=== PATIENT | female | born 1990 | race Caucasian/White ===

== ENCOUNTER 2023-01-13 12:39 | Emergency (ER) | payer MEDICAID ==
[~2023-01-13] VITALS: Ht 162.6 cm; Wt 63.5 kg
[~2023-01-13 12:39] MED LIST: NAPR-686 PO; PHE25 PO
[2023-01-13 12:40] VITALS: BP_SYST 132
[2023-01-13] MEDS ORDERED: NACL 0.9% 1,000 ML IV ONE (13:30)
[2023-01-13] MEDS ORDERED: ONDANSETRON HCL 4 MG/2 ML VIAL IVP ONE (13:30)
[2023-01-13] MEDS ORDERED: KETOROLAC TROMETHAMINE 15 MG VIAL IVP ONE (13:30)
[2023-01-13 13:33] LABS: BILIRUBIN,URINE NEGATIVE (NEGATIVE); BLOOD, URINE NEGATIVE (NEGATIVE); CLARITY/URINE SL CLOUDY (CLEAR); COLOR,URINE YELLOW (YELLOW); GLUCOSE,URINE NEGATIVE (NEGATIVE); KETONES,URINE NEGATIVE (NEGATIVE); LEUKOCYTE ESTERASE ,URINE NEGATIVE (NEGATIVE); NITRITE, URINE POSITIVE (NEGATIVE); PH,URINE 6.5 (5.0-8.0); PROTEIN URINE NEGATIVE (NEGATIVE); UROBILINOGEN,URINE 0.2 (0.2-1.0)
[2023-01-13 13:42] LABS: BACTERIA,URINE MANY /HPF (None Seen); MUCUS,URINE None Seen /LPF (None Seen); RBC,URINE NONE SEEN /HPF (0-3)
[2023-01-13 13:58] LABS: BASOPHILS # (AUTO) 0.1 K/uL (0.0-0.2); EOSINOPHILS # (AUTO) 0.4 K/uL (0.0-0.4); EOSINOPHILS % (AUTO) 5.4 % (0.0-4.0); HEMATOCRIT 36.6 % (36-48); HEMOGLOBIN 12.5 g/dL (12.0-16.0); LYMPHOCYTES # (AUTO) 2.7 K/uL (1.0-5.5); LYMPHOCYTES % (AUTO) 41.2 % (20.5-51.5); MEAN CORPUSCULAR HEMOGLOBIN 34 pg (27-31); MEAN CORPUSCULAR HGB CONC 34 % (32-36); MEAN CORPUSCULAR VOLUME 100 fL (79.0-98.0); MONOCYTES # (AUTO) 0.4 K/uL (0.0-1.0); MONOCYTES % (AUTO) 5.5 % (1.7-9.3); NEUTROPHILS # (AUTO) 3.1 K/uL (1.8-7.7); NEUTROPHILS % (AUTO) 46.9 % (40.0-70.0); PLATELET COUNT (AUTO) 273 K/uL (130-430); RED BLOOD CELL COUNT(AUTO) 3.66 MIL/uL (4.2-6.2); RED CELL DISTRIBUTION WIDTH 13.2 % (9.0-15.0); WHITE BLOOD COUNT (AUTO) 6.5 K/uL (4.8-10.8)
[2023-01-13 14:12] LABS: CALCIUM 8.2 mg/dL (8.4-11.0); CREATININE 0.89 mg/dL (0.55-1.30)
[2023-01-13] MEDS ORDERED: MORPHINE 4 MG INJ. 4 MG/ML VIAL IVP ONE (14:15)
[2023-01-13 14:17] LABS: ALBUMIN 3.4 g/dL (3.4-4.8); TOTAL BILIRUBIN 0.5 mg/dL (0.0-1.0)
[2023-01-13] MEDS ORDERED: LIDOCAINE PATCH 5% 1 EA TP ONE (14:30)
[2023-01-13] MEDS ORDERED: BACLOFEN 10 MG TABLET PO ONE (14:30)
[2023-01-13] MEDS ORDERED: DIPHENHYDRAMINE INJ 50 MG/ML VIAL IVP ONE (14:30)
[2023-01-13] MEDS ORDERED: DICL20GE TP (16:35)
[2023-01-13] MEDS ORDERED: LIDO-19 TP (16:35)
[2023-01-13] MEDS ORDERED: BACL10TA PO (16:35)
[2023-01-13] MEDS ORDERED: ACET-2634 PO (16:35)
[2023-01-13] MEDS ORDERED: OXYC-128 PO (16:36)
[2023-01-13 17:16] VITALS: BP_SYST 132
== END 2023-01-13 17:17 | disposition home or self-care (01) ==
LOC: SED 12:39
DX: S39.012A Strain of muscle, fascia and tendon of lower back, initial encounter (principal); J45.909 Unspecified asthma, uncomplicated; Z88.1 Allergy status to other antibiotic agents; Z91.041 Radiographic dye allergy status; Z79.899 Other long term (current) drug therapy; X58.XXXA Exposure to other specified factors, initial encounter; Y93.89 Activity, other specified; Y92.89 Other specified places as the place of occurrence of the external cause; Y99.8 Other external cause status
CPT/HCPCS: 99284; 96374; 96375; 96361; 80053; 81000; 85025; 87040; 87086; 36415; 81025; 83605; J1200; J1885; J2405; J2270; J7030

== ENCOUNTER 2023-06-19 13:33 | Emergency (ER) | payer MEDICAID ==
[~2023-06-19] VITALS: Ht 162.6 cm; Wt 77.1 kg
[~2023-06-19 13:33] MED LIST changes: +ACET-2634 PO; +BACL10TA PO; +DICL20GE TP; +LIDO-19 TP; +OXYC-128 PO
[2023-06-19 13:36] VITALS: BP_SYST 138; PULSE 90; RESP 22; TEMP 98.3; O2SAT 98
[2023-06-19] MEDS ORDERED: IPRATROPIUM/ALBUTEROL SULFATE 3 ML AMPUL.NEB (DUONEB) INH ONE (13:45)
[2023-06-19 14:14] LABS: INFLUENZA TYPE A Positive (NEGATIVE); INFLUENZA TYPE B NEGATIVE (NEGATIVE)
[2023-06-19] MEDS ORDERED: KETOROLAC TROMETHAMINE 30 MG VIAL IVP ONE (14:15)
[2023-06-19] MEDS ORDERED: NACL 0.9% 1,000 ML IV ONE (14:15)
[2023-06-19] MEDS ORDERED: DEXAMETHASONE SOD PHOSPHATE 10 MG/ML VIAL IVP ONE (14:15)
[2023-06-19] MEDS ORDERED: ONDANSETRON HCL 4 MG/2 ML VIAL IVP ONE (14:15)
[2023-06-19 14:27] LABS: BASOPHILS % (AUTO) 0.5 % (0.0-2.0); EOSINOPHILS # (AUTO) 0.2 K/uL (0.0-0.4); EOSINOPHILS % (AUTO) 2.1 % (0.0-4.0); HEMOGLOBIN 13.8 g/dL (12.0-16.0); LYMPHOCYTES # (AUTO) 2.7 K/uL (1.0-5.5); MEAN CORPUSCULAR HEMOGLOBIN 33 pg (27-31); MEAN CORPUSCULAR HGB CONC 34 % (32-36); MEAN CORPUSCULAR VOLUME 99 fL (79.0-98.0); MONOCYTES # (AUTO) 0.5 K/uL (0.0-1.0); MONOCYTES % (AUTO) 5.8 % (1.7-9.3); NEUTROPHILS # (AUTO) 4.4 K/uL (1.8-7.7); NEUTROPHILS % (AUTO) 56.6 % (40.0-70.0); PLATELET COUNT (AUTO) 265 K/uL (130-430); RED BLOOD CELL COUNT(AUTO) 4.14 MIL/uL (4.2-6.2); RED CELL DISTRIBUTION WIDTH 12.4 % (9.0-15.0); WHITE BLOOD COUNT (AUTO) 7.8 K/uL (4.8-10.8)
[2023-06-19 14:42] LABS: ANION GAP 8 (5-15); CALCIUM 9.2 mg/dL (8.4-11.0); CARBON DIOXIDE 25 mmol/L (23-29); CHLORIDE 101 mmol/L (98-107); CREATININE 0.89 mg/dL (0.55-1.30); GFR AFRICAN AMERICAN 93 mL/min (>90); GLUCOSE 100 mg/dL (74-106); POTASSIUM 4.3 mmol/L (3.5-5.1); SODIUM SERUM 134 mmol/L (136-145); UREA NITROGEN, BLOOD 7 mg/dL (8-21)
[2023-06-19] MEDS ORDERED: OSELTAMIVIR PHOSPHATE 75 MG CAPSULE PO ONE (14:45)
[2023-06-19 14:46] LABS: GFR NON AFRICAN-AMERICAN 77 mL/min (>90)
[2023-06-19 14:48] LABS: ALANINE AMINOTRANSFERASE 23 U/L (12-78); ALBUMIN 3.8 g/dL (3.4-4.8); ASPARTATE AMINOTRANSFERASE 14 U/L (10-37); TOTAL BILIRUBIN 0.5 mg/dL (0.0-1.0); TOTAL PROTEIN, SERUM 7.3 g/dL (6.4-8.3)
[2023-06-19 14:53] LABS: SERUM HCG (QUALITATIVE) NEGATIVE (NEGATIVE)
[2023-06-19] MEDS ORDERED: DIPHENHYDRAMINE INJ 50 MG/ML VIAL ONE (15:42)
[2023-06-19] MEDS ORDERED: DIPHENHYDRAMINE INJ 50 MG/ML VIAL IVP ONE (16:00)
[2023-06-19] MEDS ORDERED: ACET325T53 PO (17:55)
[2023-06-19] MEDS ORDERED: OSEL75CA PO (17:55)
[2023-06-19] MEDS ORDERED: METO-290 PO (17:55)
[2023-06-19] MEDS ORDERED: ALBU90AE INH (18:22)
[2023-06-19 18:45] VITALS: BP_SYST 125; PULSE 107; RESP 26; TEMP 98.7; O2SAT 98
== END 2023-06-19 18:45 | disposition home or self-care (01) ==
LOC: SED 13:33
DX: J10.1 Influenza due to other identified influenza virus with other respiratory manifestations (principal); B34.9 Viral infection, unspecified; R55 Syncope and collapse; R53.1 Weakness; R11.10 Vomiting, unspecified; M79.10 Myalgia, unspecified site; J45.909 Unspecified asthma, uncomplicated; Z88.1 Allergy status to other antibiotic agents; Z91.041 Radiographic dye allergy status; Z79.899 Other long term (current) drug therapy; Z20.822 Contact with and (suspected) exposure to COVID-19
CPT/HCPCS: 80053; 84703; 83880; 85025; 84484; 36415; 71045; 70450; 76376; 94640; 99285; 96361; 96374; 96375; 81025; 87804 ×2; 87426; G9035; J1100; J1200; J1885; J2405; J7030

== ENCOUNTER 2023-06-21 11:14 | Emergency (ER) | payer MEDICAID ==
[~2023-06-21] VITALS: Ht 162.6 cm; Wt 77.1 kg
[~2023-06-21 11:14] MED LIST changes: +ACET325T53 PO; +ALBU90AE INH; +METO-290 PO; +OSEL75CA PO
[2023-06-21 11:19] VITALS: BP_SYST 131; PULSE 96; RESP 22; TEMP 98.2; O2SAT 100
[2023-06-21] MEDS ORDERED: methylPREDNISolone SOD SUCC/PF 62.5 MG/ML VIAL IVP ONE (11:30)
[2023-06-21] MEDS ORDERED: NACL 0.9% 1,000 ML IV ONE (11:30)
[2023-06-21] MEDS ORDERED: IPRATROPIUM BROM 0.5 MG/2.5 ML VIAL.NEB (ATROVENT) INH ONE (11:30)
[2023-06-21] MEDS ORDERED: ALBUTEROL SULFATE 0.083% 2.5 MG/3 ML VIAL.NEB INH ONE (11:30)
[2023-06-21 11:56] LABS: BASOPHILS % (AUTO) 0.5 % (0.0-2.0); EOSINOPHILS # (AUTO) 0.1 K/uL (0.0-0.4); EOSINOPHILS % (AUTO) 1.4 % (0.0-4.0); HEMATOCRIT 39.2 % (36-48); HEMOGLOBIN 13.1 g/dL (12.0-16.0); LYMPHOCYTES # (AUTO) 3.8 K/uL (1.0-5.5); LYMPHOCYTES % (AUTO) 49.3 % (20.5-51.5); MEAN CORPUSCULAR HEMOGLOBIN 33 pg (27-31); MEAN CORPUSCULAR HGB CONC 34 % (32-36); MEAN CORPUSCULAR VOLUME 100 fL (79.0-98.0); MONOCYTES # (AUTO) 0.4 K/uL (0.0-1.0); MONOCYTES % (AUTO) 5.1 % (1.7-9.3); NEUTROPHILS # (AUTO) 3.4 K/uL (1.8-7.7); NEUTROPHILS % (AUTO) 43.7 % (40.0-70.0); PLATELET COUNT (AUTO) 250 K/uL (130-430); RED BLOOD CELL COUNT(AUTO) 3.93 MIL/uL (4.2-6.2); RED CELL DISTRIBUTION WIDTH 12.6 % (9.0-15.0); WHITE BLOOD COUNT (AUTO) 7.7 K/uL (4.8-10.8)
[2023-06-21 12:12] LABS: BILIRUBIN,URINE NEGATIVE (NEGATIVE); BLOOD, URINE NEGATIVE (NEGATIVE); CLARITY/URINE SLIGHTLY CLOUDY (CLEAR); COLOR,URINE YELLOW (YELLOW); GLUCOSE,URINE NEGATIVE (NEGATIVE); KETONES,URINE NEGATIVE (NEGATIVE); LEUKOCYTE ESTERASE ,URINE TRACE (NEGATIVE); NITRITE, URINE POSITIVE (NEGATIVE); PROTEIN URINE NEGATIVE (NEGATIVE); UROBILINOGEN,URINE 0.2 (0.2-1.0)
[2023-06-21 12:12] LABS: CALCIUM 8.7 mg/dL (8.4-11.0); CREATININE 0.99 mg/dL (0.55-1.30); POTASSIUM 3.4 mmol/L (3.5-5.1)
[2023-06-21 12:16] LABS: ALBUMIN 3.3 g/dL (3.4-4.8); TOTAL BILIRUBIN 0.3 mg/dL (0.0-1.0); TOTAL PROTEIN, SERUM 6.7 g/dL (6.4-8.3)
[2023-06-21 12:29] LABS: RBC,URINE 0-3 /HPF (0-3)
[2023-06-21 12:30] LABS: BACTERIA,URINE MANY /HPF (None Seen)
[2023-06-21] MEDS ORDERED: DIPHENHYDRAMINE INJ 50 MG/ML VIAL IVP ONE (12:30)
[2023-06-21] MEDS ORDERED: LEVO750T64 PO (13:16)
[2023-06-21] MEDS ORDERED: FEXO-43 PO (13:20)
[2023-06-21 13:33] VITALS: BP_SYST 131; PULSE 96; RESP 22; TEMP 98.2; O2SAT 100
== END 2023-06-21 13:33 | disposition home or self-care (01) ==
LOC: SED 11:14
DX: J10.1 Influenza due to other identified influenza virus with other respiratory manifestations (principal); J20.9 Acute bronchitis, unspecified; R05.9 Cough, unspecified; R50.9 Fever, unspecified; R11.0 Nausea; J45.909 Unspecified asthma, uncomplicated; Z88.1 Allergy status to other antibiotic agents; Z88.6 Allergy status to analgesic agent; Z91.041 Radiographic dye allergy status; Z79.899 Other long term (current) drug therapy
CPT/HCPCS: 99284; 96374; 71045; 96361; 96375; 80053; 81001; 85025; 87086; 36415; 94640; 81000; 81015; J1200; J2930; J7030

== ENCOUNTER 2023-07-06 11:06 | Emergency (ER) | payer MEDICAID ==
[~2023-07-06] VITALS: Ht 162.6 cm; Wt 72.1 kg
[~2023-07-06 11:06] MED LIST changes: +FEXO-43 PO; +LEVO750T64 PO
[2023-07-06 11:28] VITALS: BP_SYST 142; PULSE 94; RESP 20; TEMP 97.4; O2SAT 100
[2023-07-06] MEDS ORDERED: DIPHENHYDRAMINE INJ 50 MG/ML VIAL IM ONE (12:15)
[2023-07-06] MEDS ORDERED: predniSONE 20 MG TABLET PO ONE (12:15)
[2023-07-06] MEDS ORDERED: FAMOTIDINE 20 MG TABLET PO ONE (12:15)
[2023-07-06] MEDS ORDERED: DIPH25CA83 PO (13:29)
[2023-07-06] MEDS ORDERED: PRED20TA PO (13:29)
[2023-07-06] MEDS ORDERED: EPIN0.3P3 IM (13:29)
[2023-07-06] MEDS ORDERED: FAMO-132 PO (13:29)
[2023-07-06 13:48] VITALS: BP_SYST 142; PULSE 94; RESP 20; TEMP 97.4; O2SAT 100
== END 2023-07-06 13:40 | disposition home or self-care (01) ==
LOC: SED 11:06
DX: T78.40XA Allergy, unspecified, initial encounter (principal); R06.02 Shortness of breath; R07.0 Pain in throat; F41.9 Anxiety disorder, unspecified; J45.909 Unspecified asthma, uncomplicated; Z88.1 Allergy status to other antibiotic agents; Z88.6 Allergy status to analgesic agent; Z91.041 Radiographic dye allergy status; Z79.899 Other long term (current) drug therapy; X58.XXXA Exposure to other specified factors, initial encounter
CPT/HCPCS: 99283; 96372; J7512; J1200

== ENCOUNTER 2023-11-17 21:58 | Emergency (ER) | payer MEDICAID ==
[~2023-11-17] VITALS: Ht 162.6 cm; Wt 56.2 kg
[~2023-11-17 21:58] MED LIST changes: +DIPH25CA83 PO; +EPIN0.3P3 IM; +FAMO-132 PO; +PRED20TA PO
[2023-11-17 22:08] VITALS: BP_SYST 132; PULSE 94; RESP 22; TEMP 97.4; O2SAT 98
[2023-11-17] MEDS: KETOROLAC TROMETHAMINE 30 MG VIAL IVP ONE (22:39)
[2023-11-17] MEDS: LORazepam 2 MG/ML VIAL IVP ONE (22:39)
[2023-11-18 00:10] VITALS: TEMP 97.8
[2023-11-18] MEDS ORDERED: NAPR-1172 PO (01:56)
[2023-11-18 04:13] VITALS: BP_SYST 110; PULSE 83; RESP 16; O2SAT 81
== END 2023-11-18 05:23 | disposition home or self-care (01) ==
LOC: SED 21:58
DX: M54.50 Low back pain, unspecified (principal); F41.1 Generalized anxiety disorder; J45.909 Unspecified asthma, uncomplicated; Z88.1 Allergy status to other antibiotic agents; Z91.041 Radiographic dye allergy status; Z79.899 Other long term (current) drug therapy
CPT/HCPCS: 99284; 96374; 96375; J1885; J2060

== ENCOUNTER 2023-11-18 22:09 | Emergency (ER) | payer MEDICAID ==
[~2023-11-18] VITALS: Ht 162.6 cm; Wt 59.0 kg
[~2023-11-18 22:09] MED LIST changes: +NAPR-1172 PO
[2023-11-18 22:45] VITALS: BP_SYST 142; PULSE 97; RESP 16; TEMP 97.5; O2SAT 98
[2023-11-18 23:40] VITALS: BP_SYST 142; PULSE 97; RESP 16; TEMP 97.5; O2SAT 98
== END 2023-11-19 00:37 | disposition left against medical advice (07) ==
LOC: SED 22:09
DX: M25.551 Pain in right hip (principal); J45.909 Unspecified asthma, uncomplicated; Z88.1 Allergy status to other antibiotic agents; Z91.041 Radiographic dye allergy status; Z79.899 Other long term (current) drug therapy
CPT/HCPCS: 81025; 99282